=== PATIENT | female | born 1985 | race Two or more races ===

== ENCOUNTER 2020-12-22 10:07 | Outpatient (CLI) | payer OTHER | END 2020-12-22 11:11 | disposition home or self-care (01) | LOC: NST 10:07 | PROVIDERS: ATTEND Obstetrics & Gynecology | DX: Z34.83 Encounter for supervision of other normal pregnancy, third trimester (principal) ==

== ENCOUNTER 2021-03-02 12:30 | Inpatient (IN) | payer OTHER ==
[~2021-03-02] VITALS: Ht 162.6 cm; Wt 84.4 kg
[2021-03-16] MEDS ORDERED: FE C TABLET1 EACH PO (06:54)
[2021-03-16] MEDS ORDERED: PRENATABS RX T1 EACH PO (06:54)
== END 2021-03-18 11:51 | disposition home or self-care (01) | DRG 807 ==
LOC: OB/GYN 03-13 12:30 → LDR 03-16 05:42 → SURG-SUITE 03-16 14:16
PROVIDERS: ADMIT Obstetrics & Gynecology Maternal & Fetal Medicine; ATTEND Obstetrics & Gynecology Maternal & Fetal Medicine
PROC: 10E0XZZ Delivery of Products of Conception, External Approach (ICD-10-PCS; principal; 2021-03-16)
PROC: 0HQ9XZZ Repair Perineum Skin, External Approach (ICD-10-PCS; 2021-03-16)
PROC: 0W8NXZZ Division of Female Perineum, External Approach (ICD-10-PCS; 2021-03-16)
PROC: 10907ZC Drainage of Amniotic Fluid, Therapeutic from Products of Conception, Via Natural or Artificial Opening (ICD-10-PCS; 2021-03-16)
PROC: 3E033VJ Introduction of Other Hormone into Peripheral Vein, Percutaneous Approach (ICD-10-PCS; 2021-03-16)
PROC: 4A1HXFZ Monitoring of Products of Conception, Cardiac Rhythm, External Approach (ICD-10-PCS; 2021-03-16)
DX: O70.1 Second degree perineal laceration during delivery (principal); Z37.0 Single live birth; O99.824 Streptococcus B carrier state complicating childbirth; Z3A.39 39 weeks gestation of pregnancy